=== PATIENT | male | born 1970 | race Caucasian/White ===

== ENCOUNTER 2017-03-15 07:07 | Observation (INO) | payer OTHER ==
[~2017-03-15] VITALS: Ht 193 cm; Wt 138.6 kg
[2017-03-15] MEDS ORDERED: HYDROMORPHONE HC4 M1 PO (07:15)
[2017-03-15] MEDS ORDERED: VIIBRYD40 MG PO (07:15)
[2017-03-15] MEDS ORDERED: AMBIEN5 M1 PO (07:15)
[2017-03-15] MEDS ORDERED: LOPRESSOR 550 MG/TAB PO (07:16)
[2017-03-15 07:43] LABS: EOS # 0.3 (0.04-0.40); HEMATOCRIT 45.4 % (42.0-52.0); HEMOGLOBIN 15.1 g/dL (13.5-18.0); MEAN CELL VOLUME 93 fl (78-100); MEAN CORPUSCULAR HEMOGLOBIN 31 pg (27-31); MEAN CORPUSCULAR HGB CONC 33 g/dL (33-37); MONO # 0.7 (0.20-0.80); NEU # 3.2 (1.40-6.50); PLATELET COUNT 185 K/mm3 (130-400); RED BLOOD COUNT 4.86 M/mm3 (4.20-5.60); RED CELL DISTRIBUTION WIDTH 12.1 % (11.5-14.5); WHITE BLOOD COUNT 6.3 K/mm3 (4.8-10.8)
[2017-03-15 07:46] LABS: EOS % 5.4 % (0.0-4.0)
[2017-03-15 07:53] LABS: ALBUMIN 4.2 g/dL (3.5-5.0); BUN/CREATININE RATIO 15.2 (6.0-26.0); CALCIUM 8.9 mg/dL (8.4-10.2); POTASSIUM 4.5 mmol/L (3.6-5.0); TOTAL BILIRUBIN 0.5 mg/dL (0.2-1.3); TOTAL PROTEIN 7.7 g/dL (6.3-8.2)
[2017-03-15 09:29] LABS: D-DIMER 4.37 mg/L FEU (0.15-0.50)
[2017-03-15 10:41] VITALS: BP 119/63
[2017-03-15 10:56] VITALS: BP 119/63
--- NOTE | 2017-03-15 11:30 | NUR ---
2L oxygen nasal cannula applied.
--- NOTE | 2017-03-15 11:32 | NUR ---
Pt admitted to room 208. Pt alert and oriented. Pt very anxious and asks multiple questions. Pt states "I just feel edgy and anxious" Also complains of intermittent chest pains and pain to right calf. Pt states "It I think I keep having panic attacks" Pt educated on breathing and relaxation. remains at side. Dr. Berg updated on pt
--- NOTE | 2017-03-15 11:54 | NUR ---
Pt reports "feel a little better and less anxious". at bedside
--- NOTE | 2017-03-15 13:10 | NUR ---
Pt resting in bed. at side. Pt states "She just had to talk my down from another panic attack" referring to . Educated pt that spells seem to be less frequent than they were in ER. Pt agrees and has questions about medications dosing and frequency and education provided. Pt continues to report tender area to right calf and "worse with movment" and intermittent pain to left chest. Pt denies need for any medications at this time
--- NOTE | 2017-03-15 13:50 | NUR ---
Pt reports feeling very anxious and continues to ask questions regarding his diagnosis and medications. Education provided. Pt also reports pain to right calf and then reports pain to left chest and states "Its different than before, I feel like something is wrong" Dr. Berg notified and orders to follow
[2017-03-15 14:46] VITALS: BP 132/82
--- NOTE | 2017-03-15 16:30 | NUR ---
Pt reports continuing to feel anxious and that pain in his calf is hurting him. Dr Berg updated and in to see pt at this time. New orders to follow
[2017-03-15 18:46] VITALS: BP 125/57
--- NOTE | 2017-03-15 19:00 | NUR ---
REPORT RECEIVED FROM ELTON Bacon RN.
--- NOTE | 2017-03-15 20:39 | NUR ---
THIS RN IN WITH PATIENT. PATIENT'S IS AT BEDSIDE. PATIENT DOES NOT APPEAR TO BE IN ANY OBVIOUS, ACUTE DISTRESS AT THIS TIME. PATIENT IS ALERT AND ORIENTED, PLEASANT AND COOPERATIVE. PATIENT REMAINS HIGHLY ANXIOUS, EVIDENCED BY HIS REPEATED QUESTIONS IN MULTIPLE SUCCESSION, RAPID RATE OF SPEECH, INABILITY TO MAINTAIN EYE CONTACT AND MILD TACHYPNEA. PATIENT CONSUMES HIS MEDICATION WITH NO DIFFICULTY, AND IS PROVIDED A SNACK, WHICH HIS ASSISTS WITH SETUP. PATIENT REQUESTS PRN MORPHINE TO "STAY ON TOP OF THE PAIN" AND TO HELP HIM SLEEP, HE IS TIRED FROM THE DAY AND STATES HE HASN'T SLEPT WELL LATELY. PATIENT ADMINISTERD 10MG OF MORPHINE PUSH AND HIS RIGHT LEG IS PROPPED UP AND AN ICE PACK IS APPLIED TO THE CALF. PATIENT STATES THIS IS HELPING HIS PAIN TREMENDOUSLY. HOB REMAINS ELEVATED AT A 75 DEGREE ANGLE AND PATIENT CONTROLS THIS INDEPENDENTLY. BED RAILS UP X2. O2 CONTINUES TO INFUSE AT 3L/MIN VIA NC. IV TO RAC REMAINS INTACT. WILL CHANGE TEGADRM THE NEXT TIME HE IS AROUSED FOR CARES. PATIENT COMPLAINS THAT HIS CHEST PAIN IS COMING BACK, BUT DOES NOT BECOME ANXIOUS ABOUT IT HE DID EARLIER IN THE DAY, THERAPEUTIC COMMUNICATION AND ACTIVE LISTENING TECHNIQUES ARE IMPLEMENTED. CALL LIGHT WITHIN REACH. CLOSE MONITORING AND HOURLY ROUNDING CONTINUES. STATES SHE WILL BE LEAVING SOON TO GO HOME AND GET SOME REST.
--- NOTE | 2017-03-15 22:18 | NUR ---
DR. PARKER NOTIFIED OF CONTINUING LOW O2 SATURATIONS. DR. PARKER HERE TO REASSESS.
[2017-03-15 23:15] VITALS: BP 139/96
--- NOTE | 2017-03-15 23:30 | NUR ---
PATIENT AROUSED FOR 2300 VITALS. PATIENT DOES NOT APPEAR TO BE IN ANY OBVIOUS DISTRESS AT THIS TIME. PATIENT IS DROWSY, BUT ORIENTED. PATIENT STATES HIS PAIN IS TOLERABLE AT THIS TIME. PATIENT CONTINUES ON O2 VIA NC. THE TEGADERM TO HIS IV SITE IN THE RAC IS LOOSE, SO IT IS REMOVED AND A NEW ONE IS PLACED. THIS CAUSES PATIENT TO PRACTICE DEEP BREATHING EXERCISES A WAY TO CURB HIS ANXIETY. PATIENT IS ALSO INSTRUCTED ON THE INCENTIVE SPIROMETRY THAT DR. PARKER ORDERED. HOB IS ELEVATED AND PATIENT CONTROLS THIS INDEPENDENTLY. BED RAILS UP X2. CALL LIGHT WITHIN REACH. CLOSE MONITORING AND HOURLY ROUNDING CONTINUE.
--- NOTE | 2017-03-16 01:54 | NUR ---
PATIENT RANG AND COMPLAINED OF CHEST PAIN. PATIENT DOES NOT APPEAR TO BE IN ANY OBVIOUS, ACUTE DISTRESS AT THIS TIME. PATIENT IS DROWSY, BUT ORIENTED. PATIENT DESCRIBES PRESSURE PAIN TO THE LEFT CHEST. EKG OBTAINED. IV MORPHINE GIVEN. CLOSE MONITORING CONTINUES.
[2017-03-16 03:05] VITALS: BP 122/77
--- NOTE | 2017-03-16 05:31 | NUR ---
PATIENT CALLS AND STATES THAT HE IS HAVING PAIN AND WANTS SOME MORE PAIN MEDICATION. PATIENT STATES THAT THE RIGHT CALF PAIN IS NOW GOING INTO HIS HAMSTRING. PATIENT VOICES HIS FRUSTRATION WITH THE BEDREST AND NOT BEING ABLE TO DO EXERCISES OR AMBULATE A LOT. PATIENT STATES HE THINKS SOME OF THE PAIN IS FROM BEING STIFF IN THE LEGS. PATIENT DOES NOT APPEAR TO BE IN ANY OBVIOUS DISTRESS AT THIS TIME. HE IS ALERT AND ORIENTED, PLEASANT AND COOPERATIVE. PATIENT IS SITTING UP, AND STATES HE IS UP FOR THE DAY. PATIENT'S O2 IS TITRATED BACK DOWN TO 3L VIA NC. PATIENT ALSO USES HIS INCENTIVE SPIROMETRY AT THIS TIME, AND WHEN HE VOICES DISPLEASURE, THIS RN PROVIDES EDUCATION. PATIENT IS ALSO ADMINISTRED IV MORPHINE. PATIENT STATES HE DOESN'T THINK THE 5MG DOSES ARE KEEPING HIS PAIN CONTROLLED, AND IS WILLING TO CONTINUE TRYING THE ICE PACKS TO THE BACK OF THE LEG. PATIENT PROVIDED EDUCATION THAT WHILE A 10MG DOSE WAS ADMINISTERED LAST NIGHT, IT DID NOT COMPLETELY HELP HIS PAIN, AND HIS BREATHING WAS SLIGHTLY AFFECTED. PATIENT ASKS IF THERE IS ANYTHING ELSE HE CAN HAVE. PATIENT PROVIDED EDUCATION THAT HE HAS DILAUDID PO AVAILABLE, BUT TO LET THE MORPHINE START WORKING BEFORE TRYING ANY OTHER OPIODS. FURTHER EDUCATION REGARDING RESPIRATORY DEPRESSION PROVIDED. PATIENT INDICATES UNDERSTANDING.
--- NOTE | 2017-03-16 06:51 | NUR ---
REPORT GIVEN TO ELTON Bacon RN.
[2017-03-16 07:10] VITALS: BP 144/96
--- NOTE | 2017-03-16 08:00 | NUR ---
Pt sitting up in bed. RLE elevated with ice on it. Pt continues to report severe pain in calf. Reports pain is getting worse again and moving up his leg into his ham string. Pt suggest to try muscle relaxant to see if that would help this pain. Dr. Berg notifed and orders to follow. Bilat calf circumference equal at 50cm. SP02 95% on 3L oxygen via n/c. Dr Berg also orders to titrate down. Pt oxygen decreased to 2L
--- NOTE | 2017-03-16 09:52 | NUR ---
Pt ambulates in hallways. Slow steady gait >200 feet. Reports this has helped pain and tightness in right leg. Pt SP02 increased to 97% on room air with ambulation. Pt returns back to bed and remains 90% on RA. Pt reports feeling tired and SOB
--- NOTE | 2017-03-16 10:13 | NUR ---
Pt resting in bed SP02 begins dropping and staying 85-87% on room air. Pt reports feeling light headed. With 1L 02 applied pt sats increase to 88%. Pt continues to feel SOB and light headed. Pt also reports he is feeling more anxious and that his chest is starting to hurt. Oxygen increased to 2L where pt remains at 90-92%. Pt encoaured to deep breath and relax. remains at side
[2017-03-16 11:12] VITALS: BP 128/79
[2017-03-16 11:41] VITALS: BP 128/79
--- NOTE | 2017-03-16 14:10 | NUR ---
Dr. Berg in to see pt at this time. Orders oxygen to be removed and encourages pt to ambulate more often as his saturations rise with movement. Pt agrees to plan and tolerates well
[2017-03-16 15:23] VITALS: BP 123/74
[2017-03-16] MEDS ORDERED: XARELTO15 MG PO (16:53)
[2017-03-16 17:38] VITALS: BP 138/90
--- NOTE | 2017-03-16 17:43 | NUR ---
Discuss d/c plan with pt and . Answer questions. Discuss with pt increased risk of bleeding. Instruct pt to f/u with PCP. Pt reports he will call PCP tomorrow with questions about when he can return to work, about taking ibuprofen and setting up a f/u appt. Rx faxed to [facility] per pt request. INT removed from RAC. Pt ambulates from facility with .
== END 2017-03-16 17:43 | disposition home or self-care (01) ==
LOC: ED 07:07 → MED/SURG 10:36
PROVIDERS: ADMIT Family Medicine
DX: I26.99 Other pulmonary embolism without acute cor pulmonale (principal); I82.4Z1 Acute embolism and thrombosis of unspecified deep veins of right distal lower extremity; I10 Essential (primary) hypertension; F41.9 Anxiety disorder, unspecified; Z79.01 Long term (current) use of anticoagulants; F32.9 Major depressive disorder, single episode, unspecified
CPT/HCPCS: G0378; J1650; J2060; J2270; Q9967

== ENCOUNTER → 2017-07-17 | Outpatient (CLI) | payer OTHER ==
[~2017-07-17] MED LIST: AMBIEN5 M1 PO; HYDROMORPHONE HC4 M1 PO; LOPRESSOR 550 MG/TAB PO; VIIBRYD40 MG PO; XARELTO15 MG PO
[2017-07-17 12:12] LABS: D-DIMER 0.34 mg/L FEU (0.15-0.50)
== END ==
LOC: LAB 11:40
PROVIDERS: Internal Medicine
DX: R06.02 Shortness of breath (principal); Z86.711 Personal history of pulmonary embolism

== ENCOUNTER → 2019-09-29 | Outpatient (CLI) | payer OTHER ==
[2019-09-29 13:04] LABS: EOS # 0.2 (0.04-0.40); EOS % 3.7 % (0.0-4.0); HEMATOCRIT 47.8 % (42.0-52.0); HEMOGLOBIN 15.8 g/dL (13.5-18.0); LYMPH# 1.6 (1.50-4.00); MEAN CELL VOLUME 92 fl (78-100); MEAN CORPUSCULAR HEMOGLOBIN 30 pg (27-31); MEAN CORPUSCULAR HGB CONC 33 g/dL (33-37); MEAN PLATELET VOLUME 10.1 fl (7.4-10.4); MONO # 0.7 (0.20-0.80); NEU # 3.9 (1.40-6.50); PLATELET COUNT 269 K/mm3 (130-400); RED BLOOD COUNT 5.19 M/mm3 (4.20-5.60); RED CELL DISTRIBUTION WIDTH 12.7 % (11.5-14.5); WHITE BLOOD COUNT 6.4 K/mm3 (4.8-10.8)
[2019-09-29 14:21] LABS: ERYTHROCYTE SEDIMENTATION RATE 10 mm/hr (0-15)
== END ==
LOC: RAD 12:08 → LAB 12:08
PROVIDERS: Nurse Practitioner Family
DX: M25.561 Pain in right knee (principal)

== ENCOUNTER 2020-01-31 14:00 | Outpatient (RCR) | payer OTHER | END 2020-02-21 | disposition home or self-care (01) | LOC: PT | DX: Z96.651 Presence of right artificial knee joint (principal) ==

== ENCOUNTER 2020-11-17 16:01 | Emergency (ER) | payer OTHER ==
[~2020-11-17] VITALS: Ht 190.5 cm; Wt 143.4 kg
[~2020-11-17 16:01] MED LIST changes: -XARELTO20 MG PO; -XOLAIR150 MG/1 M SQ
[2020-11-17] MEDS ORDERED: XARELTO20 MG PO (16:16)
[2020-11-17] MEDS ORDERED: XOLAIR150 MG/1 M SQ (16:16)
[2020-11-17 22:17] VITALS: BP 148/104
== END 2020-11-17 22:17 | disposition home or self-care (01) ==
LOC: ED 16:01
DX: U07.1 COVID-19 (principal); D68.51 Activated protein C resistance; I10 Essential (primary) hypertension; J45.909 Unspecified asthma, uncomplicated; Z86.711 Personal history of pulmonary embolism; Z79.01 Long term (current) use of anticoagulants; Z79.899 Other long term (current) drug therapy; Z86.718 Personal history of other venous thrombosis and embolism
CPT/HCPCS: J2060; Q0244

== ENCOUNTER → 2020-11-17 | Outpatient (CLI) | payer OTHER ==
[~2020-11-17] MED LIST changes: +XARELTO20 MG PO; +XOLAIR150 MG/1 M SQ
== END ==
LOC: LAB 07:41
DX: Z20.822 Contact with and (suspected) exposure to COVID-19 (principal)

== ENCOUNTER 2021-06-07 09:56 | Outpatient (RCR) | payer OTHER ==
[~2021-06-07 09:56] MED LIST changes: +XARELTO20 MG PO; +XOLAIR150 MG/1 M SQ
== END 2021-06-16 | disposition home or self-care (01) ==
LOC: PT
DX: M50.30 Other cervical disc degeneration, unspecified cervical region (principal)

== ENCOUNTER 2021-06-18 14:15 | Outpatient (RCR) | payer OTHER | END 2021-07-17 | disposition home or self-care (01) | LOC: PT | DX: M50.30 Other cervical disc degeneration, unspecified cervical region (principal) ==

== ENCOUNTER 2021-07-19 15:20 | Outpatient (RCR) | payer OTHER | END 2021-07-19 17:00 | disposition home or self-care (01) | LOC: PT 15:20 | DX: M50.30 Other cervical disc degeneration, unspecified cervical region (principal) ==

== ENCOUNTER 2022-03-22 10:30 | Inpatient (IN) | payer OTHER ==
[~2022-03-22] VITALS: Ht 188 cm; Wt 135.7 kg
[2022-03-22] MEDS ORDERED: TIZANIDINE HYDRO4 MG PO (10:40)
[2022-03-22] MEDS ORDERED: MAXZIDE-25MG TA1 TAB PO (10:42)
[2022-03-22] MEDS ORDERED: DULOXETINE60 MG PO (10:43)
[2022-03-22 11:42] LABS: BASO # 0.03 K/mm3 (0.02-0.10); HEMATOCRIT 45.3 % (42.0-52.0); HEMOGLOBIN 15.4 g/dL (13.5-18.0); MEAN CELL VOLUME 93 fl (78-100); MEAN CORPUSCULAR HEMOGLOBIN 32 pg (27-31); MEAN CORPUSCULAR HGB CONC 34 g/dL (33-37); MEAN PLATELET VOLUME 11.2 fl (7.4-10.4); MONO # 0.72 K/mm3 (0.20-0.80); PLATELET COUNT 265 K/mm3 (130-400); RED BLOOD COUNT 4.85 M/mm3 (4.20-5.60); RED CELL DISTRIBUTION WIDTH 11.4 % (11.5-14.5)
[2022-03-22 11:47] LABS: ALBUMIN 4.2 g/dL (3.5-5.0)
[2022-03-22 11:48] LABS: POTASSIUM 3.7 mmol/L (3.5-5.1)
[2022-03-22 11:50] LABS: PROTHROMBIN TIME 9.8 SECONDS (9.0-12.0); TOTAL PROTEIN 6.7 g/dL (6.4-8.3)
[2022-03-22 11:52] LABS: TOTAL BILIRUBIN 0.4 mg/dL (0.2-1.2)
[2022-03-22] MEDS ORDERED: MORPHINE SULFAT15 M7 PO (16:44)
[2022-03-22] MEDS ORDERED: MS CONTIN 330 MG/TAB PO (16:45)
[2022-03-22] MEDS ORDERED: ONDANSETRON HYDR4 MG PO (16:48)
[2022-03-22] MEDS ORDERED: WEGOVY2.4 MG/0.7 SQ (16:52)
[2022-03-22 18:40] VITALS: BP 154/111
--- NOTE | 2022-03-22 19:15 | NUR ---
Report received from SHIRIN Martínez
--- NOTE | 2022-03-22 21:30 | NUR ---
Patient reating in bed. States he is feeling anxious. PRN ativan Q6H, given ~1830. Patient states he will try to sleep. No other needs at this time.
[2022-03-22 22:14] VITALS: BP 143/96
[2022-03-23 01:38] VITALS: BP 133/86
[2022-03-23 05:56] VITALS: BP 127/83
--- NOTE | 2022-03-23 09:49 | NUR ---
Patient resting in bed eating breakfast and talking on the cellphone. A&Ox4, 2L per NC, no c/o pain or discomfort. Reports he slept well last night. Swallowed pills whole with water. Chair in locked position. Call light within reach.
[2022-03-23 09:51] VITALS: BP 148/105
[2022-03-23 14:10] VITALS: BP 119/78
[2022-03-23 18:27] VITALS: BP 130/93
[2022-03-23 21:30] VITALS: BP 105/64
[2022-03-24 02:16] VITALS: BP 117/75
[2022-03-24 06:06] VITALS: BP 125/80
[2022-03-24 09:34] LABS: BASO # 0.03 K/mm3 (0.02-0.10); EOS # 0.09 K/mm3 (0.04-0.40); EOS % 1.3 % (0.0-4.0); HEMATOCRIT 43.6 % (42.0-52.0); HEMOGLOBIN 14.8 g/dL (13.5-18.0); LYMPH# 2.25 K/mm3 (1.50-4.00); MEAN CELL VOLUME 95 fl (78-100); MEAN CORPUSCULAR HEMOGLOBIN 32 pg (27-31); MEAN CORPUSCULAR HGB CONC 34 g/dL (33-37); MEAN PLATELET VOLUME 10.6 fl (7.4-10.4); MONO # 0.37 K/mm3 (0.20-0.80); NEU # 3.94 K/mm3 (1.40-6.50); PLATELET COUNT 265 K/mm3 (130-400); RED BLOOD COUNT 4.57 M/mm3 (4.20-5.60); RED CELL DISTRIBUTION WIDTH 11.4 % (11.5-14.5); WHITE BLOOD COUNT 6.7 K/mm3 (4.8-10.8)
[2022-03-24 09:41] LABS: ALBUMIN 3.8 g/dL (3.5-5.0); POTASSIUM 3.5 mmol/L (3.5-5.1)
[2022-03-24 09:42] LABS: CALCIUM 9.2 mg/dL (8.3-10.5)
[2022-03-24 09:44] LABS: TOTAL PROTEIN 6.5 g/dL (6.4-8.3)
[2022-03-24 09:45] LABS: TOTAL BILIRUBIN 0.3 mg/dL (0.2-1.2)
[2022-03-24 10:22] VITALS: BP 138/93
--- NOTE | 2022-03-24 13:00 | NUR ---
Dr. Berg at bedside.
[2022-03-24 14:14] VITALS: BP 128/84
[2022-03-24 18:07] VITALS: BP 148/93
--- NOTE | 2022-03-24 21:09 | NUR ---
Report recevied from Michelle CARPIO. Patient resting in bed. Up at emelyn in room. TELE in place with continuous pulse ox. SAO2 at mid 90's on RA. Reports still some SOA with exertion and some cough. Denies any other Sx except his chronic pain at knees and back at 5/10. Scheduled analgesic taken. Denies wants or needs. Remains on COVID isolation.
[2022-03-24 22:10] VITALS: BP 111/66
--- NOTE | 2022-03-25 00:35 | NUR ---
Resting quietly. Oxygen saturations 94% on RA. HR nigel at 54 with sleep.
--- NOTE | 2022-03-25 06:04 | NUR ---
Rested well with no complaints. Anxious to discharge home this AM. SAO2 remained in mid 90's on RA all night.
[2022-03-25 06:11] VITALS: BP 136/77
--- NOTE | 2022-03-25 06:47 | NUR ---
Report to Maria Luisa CARPIO.
[2022-03-25 07:37] LABS: BASO # 0.03 K/mm3 (0.02-0.10); EOS # 0.11 K/mm3 (0.04-0.40); EOS % 1.3 % (0.0-4.0); HEMOGLOBIN 14.3 g/dL (13.5-18.0); MEAN CELL VOLUME 93 fl (78-100); MEAN CORPUSCULAR HEMOGLOBIN 32 pg (27-31); MEAN CORPUSCULAR HGB CONC 34 g/dL (33-37); MEAN PLATELET VOLUME 10.5 fl (7.4-10.4); MONO # 0.72 K/mm3 (0.20-0.80); NEU # 4.72 K/mm3 (1.40-6.50); PLATELET COUNT 257 K/mm3 (130-400); RED BLOOD COUNT 4.51 M/mm3 (4.20-5.60); RED CELL DISTRIBUTION WIDTH 11.2 % (11.5-14.5); WHITE BLOOD COUNT 8.8 K/mm3 (4.8-10.8)
[2022-03-25 07:53] LABS: ALBUMIN 3.6 g/dL (3.5-5.0); POTASSIUM 3.6 mmol/L (3.5-5.1)
[2022-03-25 07:55] LABS: CALCIUM 8.9 mg/dL (8.3-10.5)
[2022-03-25 07:56] LABS: TOTAL PROTEIN 6.2 g/dL (6.4-8.3)
[2022-03-25 07:58] LABS: TOTAL BILIRUBIN 0.3 mg/dL (0.2-1.2)
--- NOTE | 2022-03-25 09:17 | NUR ---
Pt. is alert and oriented in room working. Pt expressed to [employer] he is feeling anxious and caged and would like Ativan. Ativan given at this time. He is resting in chair waiting on last infusion to go home today.
[2022-03-25 09:57] VITALS: BP 129/88
[2022-03-25] MEDS ORDERED: MORGIDOX 1X100100 MG PO (12:24)
[2022-03-25] MEDS ORDERED: PREDNISONE20 M1 PO (12:26)
[2022-03-25] MEDS ORDERED: RT ALBUTEROL CC18 GM IH (12:27)
[2022-03-25 13:07] VITALS: BP 100/64
--- NOTE | 2022-03-25 16:17 | NUR ---
Pt. IV removed. Pt refused wheelchair for discharge and requested to ambulate out of facility.
== END 2022-03-25 16:21 | disposition home or self-care (01) | DRG 178 ==
LOC: ED 10:30 → MED/SURG 14:26
PROVIDERS: Family Medicine; Nurse Practitioner; ADMIT Physician Assistant
PROC: XW033E5 Introduction of Remdesivir Anti-infective into Peripheral Vein, Percutaneous Approach, New Technology Group 5 (ICD-10-PCS; principal; 2022-03-22)
DX: U07.1 COVID-19 (principal); J45.901 Unspecified asthma with (acute) exacerbation; I10 Essential (primary) hypertension; M71.20 Synovial cyst of popliteal space [Baker], unspecified knee; Z79.01 Long term (current) use of anticoagulants; Z86.711 Personal history of pulmonary embolism; Z86.718 Personal history of other venous thrombosis and embolism
CPT/HCPCS: J0248; J0696; J1100; J2060; J2270; J2930; J3010; J7050; Q9967

== ENCOUNTER → 2022-05-16 | Outpatient (CLI) | payer OTHER ==
[~2022-05-16] MED LIST changes: +DULOXETINE60 MG PO; +MAXZIDE-25MG TA1 TAB PO; +MORGIDOX 1X100100 MG PO; +MORPHINE SULFAT15 M7 PO; +MS CONTIN 330 MG/TAB PO; +ONDANSETRON HYDR4 MG PO; +PREDNISONE20 M1 PO; +RT ALBUTEROL CC18 GM IH; +TIZANIDINE HYDRO4 MG PO; +WEGOVY2.4 MG/0.7 SQ
== END ==
LOC: LAB 12:36
DX: R06.02 Shortness of breath (principal)

== ENCOUNTER → 2022-10-23 | Outpatient (CLI) | payer OTHER | LOC: CARDREHAB 10-21 08:41 | DX: G47.33 Obstructive sleep apnea (adult) (pediatric) (principal) | CPT/HCPCS: G0399 ==

== ENCOUNTER → 2022-11-21 | Outpatient (CLI) | payer OTHER | LOC: LAB 13:46 | DX: J96.10 Chronic respiratory failure, unspecified whether with hypoxia or hypercapnia (principal) ==

== ENCOUNTER → 2022-11-26 | Outpatient (CLI) | payer OTHER | LOC: LAB 13:32 | DX: J96.10 Chronic respiratory failure, unspecified whether with hypoxia or hypercapnia (principal) ==

== ENCOUNTER → 2023-04-30 | Outpatient (CLI) | payer OTHER | LOC: LAB 12:45 | DX: L53.8 Other specified erythematous conditions (principal) ==

== ENCOUNTER → 2024-01-06 | Outpatient (CLI) | payer OTHER ==
[~2024-01-06] MED LIST changes: +Gadoterate 20 ML VIAL IV ONE
== END ==
LOC: RAD 09:25
DX: M47.22 Other spondylosis with radiculopathy, cervical region (principal); M50.122 Cervical disc disorder at C5-C6 level with radiculopathy; M48.02 Spinal stenosis, cervical region; G56.01 Carpal tunnel syndrome, right upper limb; G56.21 Lesion of ulnar nerve, right upper limb
CPT/HCPCS: A9575

== ENCOUNTER → 2024-04-27 | Outpatient (CLI) | payer OTHER ==
[~2024-04-27] MED LIST changes: -Gadoterate 20 ML VIAL IV ONE
== END ==
LOC: AMSURD 15:25
DX: I48.0 Paroxysmal atrial fibrillation (principal); R00.0 Tachycardia, unspecified; Z98.890 Other specified postprocedural states; Z86.79 Personal history of other diseases of the circulatory system